=== PATIENT | male | born 1950 | race African-American/Black ===

== ENCOUNTER → 2018-10-21 | Day surgery (SDC) | payer BC ==
[~2018-10-21] MED LIST: ASPI-630 PO; CYAN10005 PO; FOLI1TAB16 PO; HYDROmorphone 2 MG/ML VIAL IV PRN; IV RINGERS,LACTATED 1000ML 1,000 ML IV SCH; LIDOCAINE 1% PF 2 ML VIAL. ID PRN; LISI10TA2 PO; METF500T16 PO; MORPHINE SULFATE 2 MG/ML VIAL. IV PRN; MULT1TAB52 PO; OMEG1000 PO; ONDANSETRON PF 4 MG/2 ML VIAL. IV PRN; PROCHLORPERAZINE 10 MG/2 ML VIAL. IV PRN; PROPOFOL 40 ML IV ONE; SIMV20TA3 PO; VERA240C2 PO; fentaNYL PF VIAL 100 MCG/2 ML VIAL IV PRN
[2018-10-21 08:05] VITALS: BP 134/76
--- NOTE | 2018-10-21 10:48 | HP ---
ADMIT DATE: 10/21/2018 REFERRING PHYSICIAN: Dr. Morley. REASON: History of colonic polyps. HISTORY OF PRESENT ILLNESS: This is a 68-year-old male whose past medical history is significant for hypertension, diabetes, hyperlipidemia, seen for interval colonoscopy. Last exam was approximately 5 years ago, which revealed colonic polyps, but no change in bowel habits. No diarrhea, constipation, melena and/or hematochezia. Weight and appetite are stable and he is here for surveillance exam at this time. PAST MEDICAL HISTORY: Hypertension, hyperlipidemia, colonic polyps, diabetes. ALLERGIES: None. MEDICATIONS: Include aspirin, vitamin B12, folic acid, lisinopril, metformin, simvastatin, verapamil. FAMILY AND SOCIAL HISTORY: Social drinker, nonsmoker. PAST SURGICAL HISTORY: Status post appendectomy, foot surgery, vasectomy. REVIEW OF SYSTEMS: As per records. PHYSICAL EXAMINATION: GENERAL: Reveals a well-nourished, well-developed male who is alert and cooperative, in no acute distress. VITAL SIGNS: Temperature is 97.3, pulse 84, respiration rate 16. HEENT: Reveals normocephalic and atraumatic head. Pupils and extraocular muscles are not tested. Sclerae anicteric. NECK: Supple. LUNGS: Clear. CARDIOVASCULAR: Reveals an S1, S2 without S3, S4 or appreciable murmur. ABDOMEN: Reveals soft abdomen, normal bowel sounds without appreciable hepatosplenomegaly. EXTREMITIES: Reveals no cyanosis, clubbing or edema. IMPRESSION AND PLAN: History of colonic polyps. Surveillance exam is warranted at this time. Risks and benefits have been discussed with the patient and he is willing to proceed, including risk of hemorrhage and perforation requiring operation. HUSSAIN SOTO MD DR: ROSITA/anel JOB#: [id number] / [id number]
--- NOTE | 2018-10-24 13:09 | PATHOLOGY ---
[facility] Accession Number: [id number] . 01 Material submitted: . DESCENDING COLON POLYP . 01 Clinical history: . CRCS, Hx polyps . 02 Diagnosis: Colon biopsy, descending colon polyp: - Tubular adenoma. [facility]/10/24/2018 . 02 Comment: There is no high-grade dysplasia or evidence of malignancy. (JPM:[facility] 10/24/2018) . 02 Electronically signed: . Amado Powell MD, Pathologist NPI- [id number] . 01 Gross description: . Received in formalin labeled "Sam March, descending colon polyp," is a single segment of leonardo soft tissue measuring 0.5 cm in maximum dimension. The specimen is entirely submitted in cassette A1. ([facility]; 10/21/2018) TOB/TOB . 02 Pathologist provided ICD-10: D12.4 . 02 CPT . 938619 Specimen Comment: A courtesy copy of this report has been sent to Specimen Comment: [phone], . Specimen Comment: Report sent to / DR GOLD Specimen Comment: A duplicate report has been generated due to demographic updates. Performed at: 01 [facility] [address], [place] [id number] MD Pete White MD Phone: [phone] Performed at: 02 [facility] [address], [place] [id number] MD Amaod Powell MD Phone: [phone]
== END | disposition home or self-care (01) ==
LOC: SURG 05:45
PROVIDERS: ATTEND Internal Medicine Gastroenterology
DX: Z12.11 Encounter for screening for malignant neoplasm of colon (principal); D12.4 Benign neoplasm of descending colon; K64.0 First degree hemorrhoids; K57.30 Diverticulosis of large intestine without perforation or abscess without bleeding; I10 Essential (primary) hypertension; E78.5 Hyperlipidemia, unspecified; E11.9 Type 2 diabetes mellitus without complications; Z86.010 Personal history of colon polyps; Z79.82 Long term (current) use of aspirin; Z79.899 Other long term (current) drug therapy; Z72.89 Other problems related to lifestyle; Z90.49 Acquired absence of other specified parts of digestive tract; Z98.52 Vasectomy status; Z98.890 Other specified postprocedural states
CPT/HCPCS: 45385; 88305; J2704; 45380